=== PATIENT | male | born 1960 | race Caucasian/White ===

== ENCOUNTER 2019-04-15 08:54 | Day surgery (SDC) | payer OTHER ==
[2019-04-14 16:06] VITALS: BMI 34.7
[2019-04-14 17:06] LABS: Basophils % 0.9 % (0-1.3); Hematocrit 45.1 % (39.6-49.0); Lymphocytes % 17.4 % (15.3-44.8); MPV 8.8 fL (7.6-11.3); RBC Red Blood Cell Count 4.56 M/uL (4.33-5.43)
[2019-04-14 17:09] LABS: Potassium 4.5 mmol/L (3.5-5.1)
[2019-04-15] MEDS ORDERED: Ringers Lactate 1,000 ML IV ONE (09:17)
[2019-04-15] MEDS ORDERED: CEFAZOLIN/SWI 1gm 1 GM/10 ML SYR ONE (09:17)
[2019-04-15] MEDS ORDERED: FENTANYL CITR 100 MCG/2 ML ONE ×2 (09:25→10:11)
[2019-04-15] MEDS ORDERED: ROCURONIUM 50 MG/5 ML VIAL IV ONE ×2 (09:25→10:12)
[2019-04-15] MEDS ORDERED: LIDOCAINE 2% MPF 5 ML VIAL ONE ×2 (09:25→10:12)
[2019-04-15] MEDS ORDERED: PROPOFOL 200 MG/20 ML VIAL IV ONE ×2 (09:25→10:11)
[2019-04-15] MEDS ORDERED: MIDAZOLAM HCL 2 MG/2 ML INJ ONE ×2 (09:25→10:16)
[2019-04-15] MEDS ORDERED: ONDANSETRON 4 MG/2 ML VIAL ONE (09:29)
[2019-04-15] MEDS ORDERED: ALBUTEROL 2.5 MG/3 ML NEB SOL ONE (09:53)
[2019-04-15] MEDS ORDERED: dexAMETHasone 10 MG/ML VIAL ONE (10:12)
[2019-04-15] MEDS ORDERED: BUPIVACAINE 0.5% PF 10 ML VIAL ONE (10:25)
[2019-04-15] MEDS ORDERED: Mastisol Adhesive Liq ONE (11:07)
[2019-04-15] MEDS ORDERED: NEOSTIGMINE 1 MG/ML -10 ML VIAL ONE (11:08)
[2019-04-15] MEDS ORDERED: GLYCOPYRROLATE 0.2 MG/ML SYR ONE ×2 (11:08)
[2019-04-15] MEDS ORDERED: KETOROLAC 30 MG/ML INJ ONE (11:44)
[2019-04-15] MEDS: HYDROMORPHONE HCL 1 MG/ML INJ ONE ×4 (11:48→12:03)
[2019-04-15 12:40] VITALS: BP 149/86; TEMP 97.7; O2SAT 93
[2019-04-15] MEDS ORDERED: HYDROCODONE/APAP 7.5/325 MG TAB ONE (12:53)
--- NOTE | 2019-04-16 04:46 | EKG ---
Test Date: 2019-04-14 Test Time: 16:28:02 Network Contract Manager: ERIS MEASUREMENT RESULTS: Intervals: Rate: 72 AR: 112 QRSD: 104 QT: 398 QTc: 435 [place]: P: -11 AR: 112 QRS: 62 T: 59 INTERPRETIVE STATEMENTS: Normal sinus rhythm Incomplete right bundle branch block Borderline ECG Compared to ECG 10/03/2012 07:35:47 Incomplete right bundle-branch block now present Sinus tachycardia no longer present Electronically Signed On 04-16-19 04:46:00 CDT by Abelardo Mixon
--- NOTE | 2019-04-18 20:53 | OP ---
Date of Procedure: 04/15/2019 Surgeon: Darrian Beltran MD Preoperative Diagnosis: Umbilical hernia. Postoperative Diagnosis: Umbilical hernia. Procedure: Repair of umbilical hernia. Estimated Blood Loss: Minimal. Specimen: Hernia sac and contents. Findings: As above. Anesthesia: General. Complications: None. Patient tolerated the procedure in stable condition and taken to Recovery in good general condition. Procedure In Detail: Patient was brought to the OR and placed in supine position. General anesthesi a was begun. Patient was prepped and draped in usual sterile fashion. Then, a 15-blade was used to make a 3 cm curvilinear incision. Subcutaneous tissue divided. Hernia sac and contents identified. Sharp and blunt dissection utilized and base of the hernia sac identified and excised the hernia sac and contents sent to Pathology. Omentum was present in the hernia. 1 cm defect remained. A figure -of-eight #1 PDS used to close the hernia defect. Subcu wounds irrigated. Bleeding controlled with cautery. A 3-0 chromic used for subcutaneous tissue and closed the skin. Sterile dressing was appli ed. Patient was awakened and taken to Recovery in good general condition. Discharge Note: Patient will go to Day Surgery and home when stable. Disposition: Home. Condition: Stable. Discharge Instructions: Resume home medications and diet. Activity as tolerated. No heavy lifting. Remove outer dressing in 2 days. Shower. Keep wound clean and dry. Follow up in my office in a [facility] [place]. Call for appointment. Tylenol No.3 one tablet p.o. q.4 p.r.n. pain. Steri-Strips leave until office visit and abdominal binder as ordered. JACQUELINE/ROSAMARIA Voice ID: [id number] Report ID: [id number]
== END 2019-04-15 13:41 | disposition home or self-care (01) ==
LOC: OR 08:54
PROVIDERS: ATTEND Surgery
PROC: 0WQF0ZZ Repair Abdominal Wall, Open Approach (ICD-10-PCS; principal; 2019-04-15 10:15)
DX: K42.9 Umbilical hernia without obstruction or gangrene (principal); I10 Essential (primary) hypertension; J44.9 Chronic obstructive pulmonary disease, unspecified; I25.10 Atherosclerotic heart disease of native coronary artery without angina pectoris; K21.9 Gastro-esophageal reflux disease without esophagitis; I25.2 Old myocardial infarction; Z82.49 Family history of ischemic heart disease and other diseases of the circulatory system
CPT/HCPCS: 93005; 85025; 80048; 36415; 88302; 71046; 94640; 49585; J2704 ×2; J2710; J2250; J3010; J1100; J1170 ×2; J0690; J7120; J2405